=== PATIENT | female | born 1995 | race African-American/Black ===

== ENCOUNTER 2020-09-07 12:18 | Emergency (ER) | payer OTHER ==
[~2020-09-07] VITALS: Ht 172.7 cm; Wt 99.8 kg
[2020-09-07 12:37] VITALS: BP_SYST 152
--- NOTE | 2020-09-07 12:40 | NUR ---
Patient to ER bed 8 to gown for evaluation. Side rails up. Report given to Burt ALBA.
--- NOTE | 2020-09-07 12:45 | NUR ---
DR MORALES IN TO ASSESS. URINE OBTAINED
[2020-09-07 13:15] LABS: BILIRUBIN,URINE NEGATIVE (NEGATIVE); BLOOD, URINE 3+ (NEGATIVE); CLARITY/URINE SL CLOUDY (CLEAR); COLOR,URINE ORANGE (YELLOW); GLUCOSE,URINE NEGATIVE (NEGATIVE); KETONES,URINE NEGATIVE (NEGATIVE); LEUKOCYTE ESTERASE ,URINE NEGATIVE (NEGATIVE); NITRITE, URINE NEGATIVE (NEGATIVE); PROTEIN URINE 1+ (NEGATIVE); UROBILINOGEN,URINE 0.2 (0.2-1.0)
[2020-09-07 13:16] LABS: BASOPHILS % (AUTO) 0.5 % (0.0-2.0); EOSINOPHILS # (AUTO) 0.1 K/uL (0.0-0.4); EOSINOPHILS % (AUTO) 1.3 % (0.0-4.0); HEMATOCRIT 37.3 % (36-48); LYMPHOCYTES # (AUTO) 2.4 K/uL (1.0-5.5); LYMPHOCYTES % (AUTO) 34.2 % (20.5-51.5); MEAN CORPUSCULAR HEMOGLOBIN 25 pg (27-31); MEAN CORPUSCULAR HGB CONC 32 % (32-36); MEAN CORPUSCULAR VOLUME 78 fL (79.0-98.0); MONOCYTES # (AUTO) 0.7 K/uL (0.0-1.0); MONOCYTES % (AUTO) 9.5 % (1.7-9.3); NEUTROPHILS # (AUTO) 3.8 K/uL (1.8-7.7); NEUTROPHILS % (AUTO) 54.5 % (40.0-70.0); PLATELET COUNT (AUTO) 353 K/uL (130-430); RED CELL DISTRIBUTION WIDTH 15.2 % (9.0-15.0); WHITE BLOOD COUNT (AUTO) 6.9 K/uL (4.8-10.8)
--- NOTE | 2020-09-07 13:16 | NUR ---
ORDERED TO HYDRATE IN ANTICIPATION OF ULTRASOUND. TOLERATING PO INTAKE WELL
[2020-09-07 13:20] LABS: BACTERIA,URINE FEW /HPF (None Seen); RBC,URINE 20-50 /HPF (0-3); WBC,URINE 0-3 /HPF (0-3)
[2020-09-07 13:21] LABS: MUCUS,URINE 1+ /LPF (None Seen)
--- NOTE | 2020-09-07 13:57 | NUR ---
UP AMBULATING STEADY TO ULTRASOUND, NO DISTRESS
[2020-09-07 14:48] VITALS: BP_SYST 138
--- NOTE | 2020-09-07 14:49 | NUR ---
Patient given written and verbal discharge instructions and verbalizes understanding. ER MD discussed with patient the results and treatment provided. Patient in stable condition. ID arm band removed. Patient educated on pain management and to follow up with PMD. Pain Scale . Opportunity for questions provided and answered. Medication side effect fact sheet provided.
== END 2020-09-07 14:49 | disposition home or self-care (01) ==
LOC: SED 12:18
DX: O03.4 Incomplete spontaneous abortion without complication (principal); O26.891 Other specified pregnancy related conditions, first trimester; I10 Essential (primary) hypertension; Z3A.01 Less than 8 weeks gestation of pregnancy
CPT/HCPCS: 36415; 76856-TC; 81000-TC; 81025; 84702-TC; 85025; 86900; 86901; 99284

== ENCOUNTER 2020-10-30 13:24 | Emergency (ER) | payer OTHER ==
[~2020-10-30] VITALS: Ht 172.7 cm; Wt 127.0 kg
[2020-10-30 13:34] VITALS: BP_SYST 158
--- NOTE | 2020-10-30 14:30 | NUR ---
Jb narayan in [facility] - 10/30/[address] at [email or web address] Stover evaluating patient in the triage room
--- NOTE | 2020-10-30 14:30 | NUR ---
Dr Velazquez evaluating patient in the triage room
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
[2020-10-30] MEDS ORDERED: HYDROcodone/ACETAMIN 7.5-325 MG TAB PO ONE (14:45)
[2020-10-30] MEDS ORDERED: HYDROcodone/ACETAMIN 7.5-325 MG TAB ONE (14:59)
[2020-10-30 16:07] VITALS: BP_SYST 128
--- NOTE | 2020-10-30 16:08 | NUR ---
Patient given written and verbal discharge instructions and verbalizes understanding. ER MD discussed with patient the results and treatment provided. Patient in stable condition. ID arm band removed. Rx of Tylenol given. Patient educated on pain management and to follow up with PMD. Pain Scale 3/10 tolerable for pt. Opportunity for questions provided and answered. Medication side effect fact sheet provided.
== END 2020-10-30 16:08 | disposition home or self-care (01) ==
LOC: SED 13:24
DX: S52.591A Other fractures of lower end of right radius, initial encounter for closed fracture (principal); V49.9XXA Car occupant (driver) (passenger) injured in unspecified traffic accident, initial encounter; Y93.89 Activity, other specified; Y92.413 State road as the place of occurrence of the external cause; Y99.8 Other external cause status
CPT/HCPCS: 99283